=== PATIENT | female | born 1945 | race Caucasian/White ===

== ENCOUNTER 2024-10-27 10:51 | Outpatient (AMB) | payer MEDICARE, SELFPAY ==
--- OUTSIDE RECORDS SUMMARY | 2024-10-27 12:23 | XMS_ITS | Encounter Summary ---
Author Organization [facility] Address [address] [place] [address] Phone Care Team Providers Care Elementary Math Tutor Name Role Phone Vivek Cook MD Primary Care Provider [phone] Reason for Referral * MRI/CAT Scan - Closed Specialty Diagnoses / Procedures Referred By Eloisa bruce Referred To Contact Radiology Diagnoses Memory impairment Procedures MRI Brain Vivek Cook MD Phone: tel: fax: Referral ID Status Reason Start Date Expiration Date Visits Re quested Visits Authorized [id number] Closed 12/13/2020 12/13/2021 1 1 Encounter Details Date Type Department Care Team (Latest Contact Info) Description 12/13/2020 Transcribe Orders Virtual Department [address] [place] [id number] Vivek Cook MD [address] [place] [phone] Memory impairment (Primary Dx) Social History Tobacco Use Types Packs/Day Years Used Date Smoking Tobacco: Never Assessed Comments Unknown Sex and Gender Information Value Date Recorded Sex Assigned at Not on file Legal Sex Female 8:40 AM EDT Gender Identity Not on file Sexual Orientation Not on file documented as of this encounter Plan of Treatment Not on file documented as of this encounter Results * MRI BRAIN WITHOUT CONTRAST (12/29/2020 9:19 AM EDT) Anatomical Region Laterality Modality Head Magnetic Resonan ce 12/29/2020 3:19 PM EDT Impressions 12/29/2020 3:33 PM EDT 1.No subacute infarction, hemorrhage, or a mass lesion. 2.Susceptibility within the right parietal sulci likely representing hemosiderin from prior subarachnoid hemorrhage. 3.Prominence of ventricles and sulci likely representing age-related parenchymal volume loss. Other chronic changes as described above. Narrative 12/29/2020 3:33 PM EDT MRI BRAIN WITHOUT CONTRAST TECHNIQUE: Multi-sequence, multi-planar MRI of the brain was performed without intravenous contrast. COMPARISON: MRI scan from November 04, 2019 FINDINGS: Brain Parenchyma: No evidence of acute infarct, mass lesion, or hemorrhage. There is mild prominence of the trickles and sulci likely representing age- related parenchymal volume loss. There is no evidence of focal or disproportionate volume loss involving any of the lobes to suggest a specific neurodegenerative process. There is sulcal susceptibility in the right parietal lobe which likely represents hemosiderin from prior subarachnoid hemorrhage. There is no evidence of acute intracranial hemorrhage. There are scattered foci of T2/FLAIR hyperintensity in subcortical and periventricular white matter that likely represent chronic microangiopathic white matter ischemic changes in a patient of this age. A more confluent area in the right peritrigonal region, in the vicinity of the previously described sulcal susceptibility may represent sequela of prior trauma. The visualized temporal bone structures are normal. There is no evidence of a CP angle mass or any other retrocochlear abnormality to explain patient's tinnitus, even though the imaging was not specifically performed for this indication. Ventricular System and Extra-Axial Spaces: There is no evidence of midline shift or hydrocephalus. Extracranial Structures: Arterial flow voids in the skull base are present. The globes and orbits are stable. The paranasal sinuses are clear. Procedure Note Devin Wood MD, PhD - 12/29/2020 MRI BRAIN WITHOUT CONTRAST TECHNIQUE: Multi-sequence, multi-planar MRI of the brain was performed withoutintravenous contrast. COMPARISON: MRI scan from November 04, 2019 FINDINGS: Brain Parenchyma: No evidence of acute infarct, mass lesion, orhemorrhage. There is mild prominence of the trickles and sulci likely representingage- related parenchymal volume loss. There is no evidence of focal ordisproportionate volume loss involving any of the lobes to suggest aspecific neurodegenerative process. There is sulcal susceptibility in the right parietal lobe which likelyrepresents hemosiderin from prior subarachnoid hemorrhage. There is noevidence of acute intracranial hemorrhage. There are scattered foci of T2/FLAIR hyperintensity in subcortical andperiventricular white matter that likely represent chronicmicroangiopathic white matter ischemic changes in a patient of this age. Casandra confluent area in the right peritrigonal region, in the vicinity ofthe previously described sulcal susceptibility may represent sequela ofprior trauma. The visualized temporal bone structures are normal. There is no evidenceof a CP angle mass or any other retrocochlear abnormality to explainpatient's tinnitus, even though the imaging was not specifically performedfor this indication. Ventricular System and Extra-Axial Spaces: There is no evidence of midlineshift or hydrocephalus. Extracranial Structures: Arterial flow voids in the skull base arepresent. The globes and orbits are stable. The paranasal sinuses areclear. IMPRESSION: 1.No subacute infarction, hemorrhage, or a mass lesion. 2.Susceptibility within the right parietal sulci likely representinghemosiderin from prior subarachnoid hemorrhage. 3.Prominence of ventricles and sulci likely representing age-relatedparenchymal volume loss. Other chronic changes as described above. Vivek Cook MD IM MR HEAD/NECK Final Result documented in this encounter Visit Diagnoses Diagnosis Memory impairment- Primary Memory loss Memory impairment Memory loss documented in this encounter Care Teams Elementary Math Tutor Relationship Specialty Start Date End Date Vivek Cook MD [address] [place] [address] PCP - General Internal Medicine 11/02/19 documented as of this encounter Additional Source Comments The information contained in this document represents components of the legal health record. It is not the complete legal health record.[facility]
--- OUTSIDE RECORDS SUMMARY | 2024-10-27 12:23 | XMS_ITS ---
Author Name [facility] Organization Unknown Encounters Encounter Type Encounter Reason Primary Diagnosis Location Date Ambulatory Encntr for obgyn hospitalist physician exam (general) (routine) w abnormal findings Encntr for obgyn hospitalist physician exam (general) (routine) w abnormal findings [facility] 05/04/2024 Ambulatory [facility] 07/05/2021 Care Team Organization Name Specialty Phone Email Start Date End Da te [facility] 07/08/2021 [facility] 07/05/2021 07/05/2021
== END 2024-10-27 13:45 | disposition home or self-care (01) ==
LOC: HO.HMGAL 10:51
PROVIDERS: PCP Internal Medicine; Visit Provider Registered Nurse Emergency
DX: J30.89 Other allergic rhinitis (principal)
CPT/HCPCS: 95117; 95165

== ENCOUNTER 2024-12-12 12:09 | Outpatient (AMB) | payer MEDICARE, SELFPAY | END 2024-12-12 12:28 | disposition home or self-care (01) | LOC: HO.HMGAL 12:09 | PROVIDERS: PCP Internal Medicine; Visit Provider Registered Nurse Emergency | DX: J30.89 Other allergic rhinitis (principal) | CPT/HCPCS: 95117; 95165 ==

== ENCOUNTER 2025-01-09 13:17 | Outpatient (AMB) | payer MEDICARE, SELFPAY | END 2025-01-09 13:18 | disposition home or self-care (01) | LOC: HO.HMGAL 13:17 | PROVIDERS: PCP Internal Medicine; Visit Provider Registered Nurse Emergency | DX: J30.89 Other allergic rhinitis (principal) | CPT/HCPCS: 95117; 95165 ==

== ENCOUNTER 2025-02-06 10:48 | Outpatient (AMB) | payer MEDICARE, SELFPAY ==
--- OUTSIDE RECORDS SUMMARY | 2025-02-06 13:52 | XMS_ITS | Data Portability ---
Author Organization [place] [facility], [facility] Address [id number] [place] [address] Assessment No assessment recorded. Plan of Treatment Reminders Order Date Submit Date Provider Last Modified By Organization Details Last Modified Time Details Appointments None recorded. Lab fecal occult blood, stool 2016 017 [email or web address] In-Office Order, Internal Use Only DO Not Attach Compendium DO Not Attach Compendium, Do Not Delete/merge, [id number] 7 14:44:04 pap, IG + reflex HPV 2016 017 [facility], [address] [place], [address] 7 12:08:58 Referral None recorded. Procedures None recorded. Surgeries None recorded. Imaging MAMMO, screening, digital, bilateral 2024 025 [email or web address] [facility], [address], [place], [address], 5 14:30:06 DEXA, axial skeleton 2024 025 [email or web address] [facility], [address], [address], [place], [address], 5 08:41:11 MAMMO, screening, digital, bilateral - bilateral screening u/s for dense breasts if needed. 2021 022 [email or web address] [facility], [address], [address], [place], [address], 2 15:38:09 US, breast, bilateral 2021 022 [facility], [address], [address], [place], [address], 15:38:09 bone density 2021 022 [facility], [address], [place], [address], 15:38:09 MAMMO, screening, digital, bilateral - bilateral screening u/s for dense breasts if needed. 2016 017 [email or web address] [facility], [address], [place], [address], 7 14:46:51 Medication Orders compounded medication 2021 022 [facility], [address], [place], [address], 09:20:28 compounded medication 2020 021 [facility], [address], [place], [address], 09:20:21 compounded medication 2017 018 [facility], [address], [place], [address], 09:20:18 Patient TargetsNo targets recorded. Patient InstructionsNo instructions recorded. Reason for Referral None Reported. Results Created Date Observation Date Name Description Value Unit Range Abnormal Flag Note LastModifiedBy Organization Detail LastModifiedTime 02/24/20 17 02/23/2017 fecal occul t blood , stool Occult Blood negati ve Not Available In-Office Order Internal Use Only DO Not Attach Compendium DO Not Attach Compendium, Do Not Delete/merge, [id number] 02/23/2017 14:02:23 02/24/20 17 02/24/2017 pap, IG + refle x HPV report GYNEC OLOGI PEARL CYTOL OGY REPOR T A. THINP REP PAP TEST WITH HPV REFLE X: SPECI MEN ADEQU ACY: SATIS FACTO RY FOR EVALU ATION . INTER PRETA TION: NEGAT TALITA FOR INTRA EPITH ELIAL LESIO N OR MALIG IBAN . Elect rudolph easton Angy d Out By: KALLI CURRY ON, [place]( CP) CLINI [facility] INFOR MATIO N: LMP: NG Z12.4 Biops y Date: NG Numbe r of vials /slid es submi tted: 1 Speci men sourc e: CERVI X/END OCERV IX Abnor mal Pap Date: NG Autom ated presc reeni ng of all liqui d based speci mens is perfo rmed by the ThinP rep Imagi ng Syste m, unles s other [place]. The Pap test is a scree bear test with an inher ent false negat talita rate. Testi ng per[facility] at [facility] , [address] [place] [address] CLIA [id number] CL-PO [id number]. Not Available [facility] [address] [place], [address] 02/24/2017 12:08:58 02/27/20 17 09/01/2016 MAMMO , scree bear, digit al, bilat eral No observ ation record ed. [facility] (Imaging) [address] [place] [address], [address], 02/08/2018 13:29:20 02/10/20 18 03/09/2017 imagi ng/di agnos tic resul t No observ ation record ed. BARCODE Not Available 2017 10:43:19 02/10/20 18 12/07/2017 imagi ng/di agnos tic resul t No observ ation record ed. BARCODE Not Available 2017 10:43:19 02/10/20 18 12/01/2017 imagi ng/di agnos tic resul t No observ ation record ed. BARCODE Not Available 2017 10:43:19 05/17/19 25 03/17/2024 MAMMO , scree bear, tomos ynthe sis, bilat eral No observ ation record ed. [email or web address] [facility] [address], [place], [address], 05/18/2024 10:20:03 Result Notes None recorded. Problems Name Problem SNOMED Code Status Onset Date Resolution Date Notes Provider Name and Address Organization Details Recorded Time Hypertensive disorder 92153268 Active Lynette Mills [facility], [facility] 6 10:02:07 Atrophic vaginitis 89267674 Active LOLA ANTONIO MD 175 [facility], [address] [place] [address], [phone], [facility] 6 10:44:01 Asthma 116288476 Active 2012 Lynette Mills [facility] 6 10:02:07 Problem Notes None recorded. Procedures Surgical History Date Name Laterality Status Provider Name and Address Organization Details Recorded Time 12/02/19 Date of Last Mammogram completed DO NOT USE DO NOT USE [facility] 02/08/2018 13:07:45 02/24/20 17 Medicare Exam completed LOLA ANTONIO MD 175 [facility], [address] [place] [address], [phone], [facility] 02/23/2017 14:43:11 02/24/20 17 Screening PAP Medicare completed LOLA ANTONIO MD 175 [facility], [address] [place] [address], [phone], [facility] 02/23/2017 14:43:16 05/30/19 15 Date of Last Pap Smear completed Alessia Barrientos [facility] 02/23/2017 13:57:57 Appendectomy completed Not Available [facility] 08/28/2014 14:13:29 Tubal Ligation completed Not Available [facility] 08/28/2014 14:13:29 Colonoscopy completed Anahi Doran [place] - [facility] 07/05/2021 08:52:05 Imaging Results None recorded. Procedure Notes None recorded. Medical Equipment None Reported. Allergies Allergen ID Allergen Name Allergen Category Reaction Reaction Severity Criticality Documentation Date Start Date Code Code System Note Provider Name and Address Organization Details Recorded Time 024156 clarithro mycin medicatio n Not available Not available Not available 08/15/20142012 RxNorm COMME NT: CAUSA TIVE AGENT : BIAXI N; Not Available [facility] 5 09:38:44 Medications Name Sig Start Date Stop Date Status Note LastModified by Organization Details LastModified Time compounde d medicatio n advised 0.5 mg of cream 1-2 times per week. 02/17 completed Not Available Not Available Not Available compounde d medicatio n 0.5 mg of cream 1-2 times per week 05/04 completed Not Available Not Available Not Available compounde d medicatio n Advised 0.5mg of cream 1-2 times per week. 02/08 completed Not Available Not Available Not Available compounde d medicatio n 0.5 mg of cream 1-2 times per week 02/17 completed Not Available Not Available Not Available compounde d medicatio n advised 0.5mg of cream 1-2 times per week. active Not Available Not Available No t Available compounde d medicatio n advised 0.5mg of cream 1-2 times per week. 02/08 completed Not Available Not Available Not Available compounde d medicatio n 0.5 mg of cream 1-2 times per week 05/04 completed Not Available Not Available Not Available compounde d medicatio n 0.5 mg of cream 1-2 times per week 02/17 completed Not Available Not Available Not Available compounde d medicatio n 0.5 mg of cream 1-2 times per week 2024 active Not Available Not Available Not Avai lable compounde d medicatio n advised 0.5mg of cream 1-2 times per week. 02/17 completed Not Available Not Available Not Available titae d medicatio n 0.5 mg of cream 1-2 times per week 05/04 completed Not Available Not Available Not Available carisopro dol 350 mg tablet active Not Available Not Available No t Available amoxicill in 500 mg capsule active Not Available Not Available Not Available donepezil 5 mg tablet 05/04 completed Not Available Not Available Not Available benzonata te 200 mg capsule TAKE ONE CAPSULE BY MOUTH THREE TIMES A DAY FOR 5 DAYS active Not Available Not Available No t Available donepezil 10 mg tablet TAKE ONE TABLET BY MOUTH EVERY DAY IN THE EVENING 05/04 completed Not Available Not Available Not Available prednison e 20 mg tablet 02/08 completed Not Available Not Available Not Available alendrona te 70 mg tablet TAKE 1 TABLET BY MOUTH ONCE WEEKLY 05/04 completed Not Available Not Available Not Available betametha sone, augmented 0.05 % topical cream PLEASE SEE ATTACHED FOR DETAILED DIRECTIO NS 05/04 completed Not Available Not Available Not Available ciproflox acin 500 mg tablet 02/08 completed Not Available Not Available Not Available sulfameth oxazole 800 mg-trimet hoprim 160 mg tablet TAKE ONE TABLET BY MOUTH EVERY 12 HOURS FOR 5 DAYS 05/04 completed Not Available Not Available Not Available meloxicam 7.5 mg tablet TAKE 1 TABLET BY MOUTH EVERY DAY 05/04 completed Not Available Not Available Not Available hydrocort isone 1 % topical cream APPLY A THIN LAYER TO FACE TWO TIMES A DAY 05/04 completed Not Available Not Available Not Available cephalexi n 500 mg capsule TAKE ONE CAPSULE BY MOUTH TWICE A DAY FOR 7 DAYS - STOP BACTRIM 05/04 completed Not Available Not Available Not Available erythromy reece 5 mg/gram (0.5 %) eye ointment APPLY 1/2 INCH RIBBON INTO THE CONJUNCT IVAL SAC(S) IN AFFECTED EYE(S) 3 TIMES PER DAY 05/04 completed Not Available Not Available Not Available betametha sone dipropion ate 0.05 % topical cream 05/04 completed Not Available Not Available Not Available diclofena c sodium 75 mg tablet,de layed release TAKE ONE TABLET BY MOUTH TWICE A DAY 05/04 completed Not Available Not Available Not Available dexametha sone sodium phosphate 4 mg/mL injection solution INJECT ONE ML UNDER THE SKIN DIRECTED - TO BE USED BY PHYSICAL THERAPIS TS AT [facility] 05/04 completed Not Available Not Available Not Available methylpre dnisolone 4 mg tablets in a dose pack 02/08 completed Not Available Not Available Not Available albuterol sulfate HFA 90 mcg/actua tion aerosol inhaler INHALE TWO PUFFS BY MOUTH EVERY 4 HOURS NEEDED active Not Available Not Available No t Available fluticaso ne propionat e 50 mcg/actua tion nasal spray,shruti pension USE 2 SPRAYS IN EACH NOSTRIL ONCE DAILY NEEDED active Not Available Not Available No t Available doxycycli ne hyclate 100 mg tablet 02/08 completed Not Available Not Available Not Available naproxen 500 mg tablet TAKE ONE TABLET BY MOUTH TWICE A DAY WITH FOOD 05/04 completed Not Available Not Available Not Available amoxicill in 875 mg-potass ium clavulana te 125 mg tablet active Not Available Not Available Not Available azithromy reece 500 mg tablet 02/23 completed Not Available Not Available Not Available ciclopiro x 1 % shampoo WASH HAIR 2-3 TIMES PER WEEK 05/04 completed Not Available Not Available Not Available memantine 10 mg tablet TAKE ONE TABLET BY MOUTH EVERY DAY 05/04 completed Not Available Not Available Not Available memantine 5 mg tablet TAKE ONE TABLET BY MOUTH EVERY DAY 05/04 completed Not Available Not Available Not Available metoprolo l tartrate 25 mg tablet TAKE ONE TABLET BY MOUTH TWICE A DAY WITH FOOD 05/04 completed Not Available Not Available Not Available Flovent HFA 44 mcg/actua tion aerosol inhaler INHALE 2 PUFF BY INHALATI ON ROUTE 2 TIMES EVERY DAY active PRESCRIB ED ELSEWHER E Not Available Not Available Not Available loratadin e 02/23 completed Not Available Not Available Not Available Vagifem 02/08 completed Not Available Not Available Not Available Vagifem 10 mcg vaginal tablet 0.5 MG OF CREAM 1-2 TIMES PER WEEK active Not Available Not Available No t Available Claritin Liqui-Gel 10 mg capsule active PRESCRIB ED ELSEWHER E Not Available Not Available Not Available Proctosol HC 2.5 % topical cream perineal applicato r 02/08 completed Not Available Not Available Not Available Paxlovid 300 mg (150 mg x 2)-100 mg tablets in a dose pack 05/04 completed Not Available Not Available Not Available Vitals Date Recorded Body height Body mass index (BMI) Body weight Systolic And Diastolic Provider Name and Address Organization Details Last Updated DateTime 05/04/2024 172.72 cm 24.6 kg/m2 01527.96 g 138/80 mm[Hg] Cyndie Sha [facility] 05/04/2024 14:21:43 Date Recorded Body weight Body mass index (BMI) Body height Systolic And Diastolic Provider Name and Address Organization Details Last Updated DateTime 05/25/2020 34782.41 g 23.7 kg/m2 172.72 cm 122/76 mm[Hg] Anahi Doran [facility] 05/25/2020 10:15:27 Date Recorded Body height Body mass index (BMI) Body weight Systolic And Diastolic Provider Name and Address Organization Details Last Updated DateTime 07/05/2021 172.72 cm 24.3 kg/m2 50523.78 g 124/78 mm[Hg] Anahi Doran [facility] 07/05/2021 09:56:29 Date Recorded Body height Body mass index (BMI) Body weight Systolic And Diastolic Provider Name and Address Organization Details Last Updated DateTime 02/08/2018 172.72 cm 23.6 kg/m2 67384.61 g 116/80 mm[Hg] DO NOT USE DO NOT USE [facility] 02/08/2018 13:09:39 Date Recorded Body weight Body mass index (BMI) Body height Systolic And Diastolic Provider Name and Address Organization Details Last Updated DateTime 02/23/2017 09206.78 g 24.3 kg/m2 172.72 cm 100/60 mm[Hg] Alessia Barrientos [facility] 02/23/2017 14:15:57 Social History Question Answer Notes LastModified by Organizat ion Details LastModified Time Tobacco Smoking Status Never Smoker Lynette marie [facility] 05/24/2015 11:03:41 Do You Have Any Children? Yes [email or web address] Information not available 02/23/2017 Does Your Partner Physically Hurt You Or Threaten To Hurt You? No [email or web address] Information not available 02/23/2017 Has Your Partner Forced You To Have Sex Or Perform Sex Acts When You Did Not Want To? No Information not available 02/23/2017 Does Your Partner Insult, Scream At Or Talk Down To You? No Information not available 02/23/2017 Does Your Partner Control You Or Any Part Of Your Life? No [email or web address] Information not available 02/23/2017 Are You Afraid Of Your Partner? No [email or web address] Information not available 02/23/2017 Drug Use? No Information no t available 05/24/2015 Do You Feel Safe At Home? Yes [email or web address] Information not available 02/23/2017 What Was The Date Of Your Most Recent Tobacco Screening? 02/23/2017 [email or web address] Information not available 07/05/2021 How Many Children Do You Have? 2 [email or web address] Information not available 02/23/2017 Sex: Unknown Functional Status Question Answer Note LastModified by Organizat ion Details LastModified Time What is your level of alcohol consumption? None Information not available 05/24/2015 What is your exercise level? Moderate 2-4 miles per day, weight bearing exercises [email or web address] Information not available 02/23/2017 Mental Status None recorded. Family History Relationship Description Onset Age of this Age Resolved Age Notes LastModified by Organization Details LastModified Time Unspecified Relation Malignant neoplasm of breast matern al cousin [email or web address] Not available 07/16/2015 09:55:14 Father Myocardial infarction shammell Not available 07/05 08:52:05 Mother Aortic valve stenosis shammell Not available 2021 08:52:05 Medical History Condition Response Other N Kidney Stones N Breast Cancer N Blood clots N Colon cancer N Benign breast disease N Depression N Lung Disease N Defects or Inherited Disease N Anesthesia Complications N Headaches/Migraines N Neurological Disorder N Have you ever been on isolation N Anxiety Disorder N HSV N Arthritis N Infertility N Interstitial Cystitis N Acid Reflux (GERD) N Cancer N Stroke N Endometriosis N Fibromyalgia N Spina Bifida N HIV N Heart Problems N Sexual Dysfunction N Hypogonadism N Autoimmune disorder N Thyroid Problems N Kidney or Bladder Problems N GI Problems N Eating Disorder N Anemia N Multiple Sclerosis N Psychiatric Illness N Diabetes N Ovarian Cancer N Blood Transfusions N Bladder disease N History of MRSA N None reported by patient N Abnormal Uterine Bleeding N Hyperlipidemia N BrCa positive N Abuse/Domestic Violence N Diverticulitis N Asthma Y Bladder Cancer N Hepatitis N Hypertension N Osteoporosis N Thrombophilias N Gynecological History Statement/Question Response Current Control Method Menopause Date of Last Pap Smear 05/29/2014 Date of Last Mammogram 12/01/2017 Current Control Method Tubal Ligat ion IPV Screen Done 05/04/2024 Obstetrics History GPAL:G 3 P 2 0 1 2 Type Value Full Term 2 Spontaneous 1 Living 2 Total 3 Past Encounters Encounter ID Performer Location Encounter Start Date Encounter Closed Date Diagnosis/Indication Diagnosis SNOMED-CT Code Diagnosis ICD10 Code Diagnosis IMO Codes Diagnosis Note [id number] [facility] [address] [place] [address] 05/17/2012 00:00:00 [id number] [facility] [address] [place] [address] 07/19/2012 00:00:00 [id number] [facility] [address] [place] [address] 01/17/2013 00:00:00 [id number] [facility] [address] [place] [address] 05/23/2013 00:00:00 [id number] [facility] [address] [place] [address] 05/29/2014 00:00:00 [id number] LOLA ANTONIO MD [facility] [address] [place] [address] 07/16/2015 09:51:59 07/16/2015 10:53:46 Atrophic vaginitis 43248171 N95.2 Patient declines vagifem due to $250 cost. Advised to switch to compounded cream to help control costs. Will do equivalent of vagifem. [id number] LOLA ANTONIO MD [facility] [address] [place] [address] 02/23/2017 12:39:40 02/23/2017 14:40:12 Gynecologic examination 07634635 Z01.419 breast and pelvic for Medicare done per patient request. Screening for malignant neoplasm of cervix 777063701 Z12.4 Screening mammography 24 109584 Z12.31 Advised to obtain a yearly screening mammogram and to perform monthly self breast exam. done 09/01/2016 and normal Screening for malignant neoplasm of rectum 813697904 Z12.12 FIT test performed and was negative. [id number] LOLA ANTONIO MD [facility] [address] [place] [address] 02/08/2018 12:23:19 02/08/2018 13:47:57 Atrophic vaginitis 33597284 N95.2 Patient declines vagifem due to $250 cost. Advised to switch to compounded cream to help control costs. Will do equivalent of vagifem. Due for breast and pelvic with pap next year. [id number] CHUY GARRISON APRN [facility] [address] [place] [address] 05/25/2020 09:54:42 05/25/2020 10:35:58 Atrophic vaginitis 61411708 N95.2 Continued good response to compounded testradiol vaginal cream for Continue 1x/week Review in one year sooner for problems She agrees to s en us a copy of her most recent mammogram with PCP [id number] CHUY GARRISON APRN [facility] [address] [place] [address] 07/05/2021 08:50:44 07/05/2021 09:56:18 Gynecologic examination 11133462 Z01.411 Not high risk for cervical cancer Menopause present 585001 006 N95.1 Review when to perform bone density evaluation . Plan up date this year Screening mammography 24 476331 Z12.31 Advised to obtain a yearly screening mammogram and to perform monthly self breast exam. Cannot continue on estrogen without regular screening Heterogene ously dense breast composition 690832685 R92.2 Atrophic vaginitis 48408 000 N95.2 Continued good response to compounded testradiol vaginal cream for Continue 1x/week Review in one year sooner for problems She agrees to s en us a copy of her most recent mammogram with PCP Screening for malignant neoplasm of rectum 443323478 Z12.12 Next colonoscop y due at 2024 Discussed same statistics Neg family hisotry and neg for polyps was approved for ten years screening interval [id number] CHUY GARRISON, ASSISTANT PROFESSOR OF ECONOMICS [facility] [address] [place] [address] 05/04/2024 13:57:42 05/04/2024 15:33:20 Gynecologic examination 87412865 Z01.419 Not high risk for cervical cancer Screening mammography 24 097798 Z12.31 Advised to obtain a yearly screening mammogram and to perform monthly self breast exam. Cannot continue on estrogen without regular screening Menopause present 356423 006 N95.1 Review when to perform bone density evaluation .does not think she needs dexa Screening for malignant neoplasm of rectum 047790122 Z12.12 Next colonoscop y due at 2024 Discussed same statistics Neg family history and neg for polyps was approved for ten years screening interval Does not think she needs another colonoscop y Depression screening 171 132025 Z13.31 Screen negative for depression Atrophy of vagina 314772 009 N95.2 Does report vaginal burning cannot remember why she was using compounded estradiol cream( chart review was instituted to control costs but probably just as cot effective for estradiol cream now She will call if there is any intoleranc e Health Concerns Section Related Observation LastModified by Organization Detai ls LastModified Time None Recorded Concern Status LastModified by Organization Details LastModified Time None Recorded Advance Directives Directive None Recorded Payers Insurance Date Sequence Insurance Name Policy Number Policy Martel Covered Member ID Martel Member ID Guarantor Name 04/18/2024 1 MEDICARE B-CT: NGS Vanna Fonseca [id number] Vanna Fonseca 05/09/2024 2 [place] [id number] Vanna Fonseca [id number] Vanna Fonseca Notes Date Note Type Note Provider Name and Address Organization Details Recorded Time 7 text/html here for medicare exam only. Refuses breast since patient states was done by PCP recently. LOLA ANTONIO MD [address] [place] [address], [address] Floor, [place], [address], [place] [facility] 02/23/2017 14:44:12 8 text/html [facility] Vaginal DischargeReported by PatientHPIFor location, patient reportsvagina. For quality, patient reportswhite. For severity, patient reportsmild. For associated symptoms, patient reportsno vaginal itching,no vaginal burning,no swelling/redness,no fever/chills,no diarrhea,no abdominal pain,no pelvic pain,no vaginal pain,no pain during urination,no pain during intercourse,no vaginal lump,no genital lesion,no sexually transmitted disease, andno fever. For modifying factors, (improved with vagifem.). LOLA ANTONIO MD 175 [facility], [address] [place] [address], [phone], [facility] 02/08/2018 13:39:16 1 text/html RDB pt here for f/u on atrophic vaginitis. Last seen 02/08/2018 PT using compound estrogen 0.5 1x weekly internally. PT feeling stable. Has been having mammogram with her PCP Asked to send us a copy of her last report since we are the ones prescribing her estrogen Retired RN CHUY GARRISON APRN 175 [facility], [address] [place] [address], [place], [address], [facility] 05/25/2020 10:43:13 2 text/html Pt here for MCR breast and pelvic Was told by PCP that she does not have to have mammograms anymore Discussed office policy here is you cannot be on estrogen, even topcial without mammogram at the usual designated intervals Stopping Mammograms or colonoscopy is just decreased as there are no data points ; 75 year olds were not included in any study parameters CHUY GARRISON APRN 175 [facility], [address] [place] [address], [phone], [facility] 07/05/2021 09:58:11 5 text/html [facility] Annual GYNReported by PatientGenitourinary symptomsFor menstrual cycle, patient reportspostmenopausal. For urinary symptoms, patient reportsno hematuriaandno incontinence. For vulva, patient reportsno genital lesion. For vagina, patient reportsnormal vaginal discharge.Breast symptomsFor breast, patient reportsno breast pain,no breast lump, andno nipple discharge.Endocrine symptomsFor menopausal symptoms, patient reportsinadequacy of lubrication of vaginal mucosabut reportsno menopausal symptoms. For sexual activity, patient reportsno sexual complaints,no pain during intercourse,normal libido, andsexually active no __.Psychological symptomsFor psychological symptoms, patient reportsno depression,no anxiety, andno pmdd. PRESENTS FOR ANNUAL VISIT W/ DPFPAP SMEAR 2017 DEFERRED DUE TO AGEMAMMOGRAM 2018 ENCOURAGEDDEXA DECLINESCOLON SCREEN YEARS AGOC/O VAGINAL DRYNESS, STATES CONSTANT BURNING CHUY GARRISON APRN [address] [facility], 3rd Floor, [place], [address], [place] [facility] 05/04/2024 16:32:17 OBGyn Episode No OBEpisode recorded.
--- OUTSIDE RECORDS SUMMARY | 2025-02-06 13:52 | XMS_ITS | Encounter Summary ---
Author Organization [facility] Address [address] [facility] [address] [address] [place] [address] Phone Care Team Providers Care Quote Clerk Name Role Phone Vivek Cook MD Primary Care Provider [phone] Reason for Referral * MRI/CAT Scan - Closed Specialty Diagnoses / Procedures Referred By Eloisa bruce Referred To Contact Radiology Diagnoses Memory impairment Procedures MRI Brain Vivek Cook MD Phone: tel: fax: Referral ID Status Reason Start Date Expiration Date Visits Re quested Visits Authorized [id number] Closed 12/13/2020 12/13/2021 1 1 Encounter Details Date Type Department Care Team (Latest Contact Info) Description 12/13/2020 Transcribe Orders Virtual Department [address] [place] [address] Vivek Cook MD [address] [place] [id number] Memory impairment (Primary Dx) Social History Tobacco [...] loss documented in this encounter Care Teams Quote Clerk Relationship Specialty Start Date End Date Vivek Cook MD [address] [address] PCP - General Internal Medicine 11/02/19 documented as of this encounter Additional Source Comments The information contained in this document represents components of the legal health record. It is not the complete legal health record.[facility]
--- OUTSIDE RECORDS SUMMARY | 2025-02-06 13:52 | XMS_ITS | Encounter Summary ---
Author Organization [facility] Address [address] [address] [place] [address] Phone Care Team Providers Care Restaurant Cashier Name Role Phone Vivek Cook MD Primary Care Provider [phone] Encounter Details Date Type Department Care Team (Latest Contact Info) Description 02/04/2023 Transcribe Orders Virtual Department [address] [place] [address] Mo Mancini MD [address] [place] [phone] [email or web address] Cardiac murmur, unspecified Social History Tobacco Use Types Packs/Day Years Used Date Smoking Tobacco: Never Assessed Education Answer Date Recorded Are you interested in more education? Not on brando e 07/04/2022 Are you concerned about learning? Not on file 07/04/2022 No 07/04/2022 No 07/04/2022 Digital Access Answer Date Recorded No 08/05/2022 No 08/05/2022 Reliable internet access at home? Not on file 08/05/2022 Device with a working camera? Not on file Comments Unknown Sex and Gender Information Value Date Recorded Sex Assigned at Not on file Legal Sex Female 8:40 AM EDT Gender Identity Not on file Sexual Orientation Not on file documented as of this encounter Plan of Treatment Not on file documented as of this encounter Visit Diagnoses Diagnosis Cardiac murmur, unspecified documented in this encounter Care Teams Restaurant Cashier Relationship Specialty Start Date End Date Vivek Cook MD [address] [address] PCP - General Internal Medicine 11/02/19 documented as of this encounter Additional Source Comments The information contained in this document represents components of the legal health record. It is not the complete legal health record.[facility]
--- OUTSIDE RECORDS SUMMARY | 2025-02-06 13:52 | XMS_ITS | Clinical Summary ---
Author Organization [facility] Address [address] [facility] [address] [place] [address] Phone Care Team Providers Care Boat Mechanic Name Role Phone Vivek Cook MD Primary Care Provider [phone] Social History Tobacco Use Types Packs/Day Years [...] on file Sexual Orientation Not on file Last Filed Vital Signs Vital Sign Reading Time Taken Comments Blood Pressure - - Pulse - - Temperature - - Respiratory Rate - - Oxygen Saturation - - Inhaled Oxygen Concentration - - Weight 70.8 kg (156 lb) 12/24/2020 7:21 PM EDT Height 172.7 cm (5' 8 ) 12/24/2020 7:21 PM EDT Body Mass Index 23.72 12/24/2020 7:21 PM EDT Plan of Treatment Not on file Medical Devices Not on file Insurance [employer] MEDEX SUPPLEMENT MEDICARE PART A & B [employer] MEDEX SUPPLEMENT MEDICARE PART A & B [employer]EX SUPPLEMENT MEDICARE PART A & B [employer] MEDEX SUPPLEMENT MEDICARE PART A & B [employer] MED[employer] SUPPLEMENT MEDICARE PART A & B [employer] MED[employer] SUPPLEMENT MEDICARE PART A & B [employer] MED[employer] SUPPLEMENT MEDICARE PART A & B [employer] MED[employer] SUPPLEMENT MEDICARE PART A & B [employer] SUPPLEMENT MEDICARE PART A & B Care Teams Boat Mechanic Relationship Specialty Start Date End Date Vivek Cook MD [address] [place] [address] PCP - General Internal Medicine 11/02/19 Additional Source Comments The information contained in this document represents components of the legal health record. It is not the complete legal health record.[facility]
--- OUTSIDE RECORDS SUMMARY | 2025-02-06 13:52 | XMS_ITS | Encounter Summary ---
Author Organization [facility] Address [address] [facility] [address] [facility] [address] [place] [address] Phone Care Team Providers Care Manager Policy Name Role Phone Vivek Cook MD Primary Care Provider [phone] Encounter Details Date Type Department Care Team (Late st Contact Info) Description 12/13/2020 Procedure [facility], [address] [address] Social History Tobacco Use Types Packs/Day Years Used Date Smoking Tobacco: Never Assessed Comments Unknown Sex and Gender Information Value Date Recorded Sex Assigned at Not on file Legal Sex Female 8:40 AM EDT Gender Identity Not on file Sexual Orientation Not on file documented as of this encounter Plan of Treatment Not on file documented as of this encounter Visit Diagnoses Not on filedocumented in this encounter Care Teams Manager Policy Relationship Specialty Start Date End Date Vivek Cook MD [address] [facility] [address] [place] [address] PCP - General Internal Medicine 11/02/19 documented as of this encounter Additional Source Comments The information contained in this document represents components of the legal health record. It is not the complete legal health record.[facility]
--- OUTSIDE RECORDS SUMMARY | 2025-02-06 13:52 | XMS_ITS | Encounter Summary ---
Author Organization [facility] Address [address] [facility] [address] [place] [address] Phone Care Team Providers Care Mattress Filler Name Role Phone Vivek Cook MD Primary Care Provider [phone] Encounter Details Date Type Department Care Team (Late st Contact Info) Description 12/26/2020 Ancillary Orders [facility],Outside Imaging [address] [place] [address] System, Provider Not In, [place] [address] Social History Tobacco Use Types Packs/Day Years Used Date Smoking Tobacco: Never Assessed Comments Unknown Sex and Gender Information Value Date Recorded Sex Assigned at Not on file Legal Sex Female 8:40 AM EDT Gender Identity Not on file Sexual Orientation Not on file documented as of this encounter Plan of Treatment Not on file documented as of this encounter Results * MRI Brain Outside (No Interpretation) (11/04/2019 12:00 AM EDT) Narrative SYSTEMGENERATED, DOCUMENTATION - 12/26/2020 2:48 PM EDT This study is for PACS storage only and not for interpretation. us Provider Not In System PhD IMG OUTSIDE IMAGING W /OUT INTERPRETATION Final Result documented in this encounter Visit Diagnoses Not on filedocumented in this encounter Care Teams Mattress Filler Relationship Specialty Start Date End Date Vivek Cook MD [address] [address] PCP - General Internal Medicine 11/02/19 documented as of this encounter Additional Source Comments The information contained in this document represents components of the legal health record. It is not the complete legal health record.[facility]
== END 2025-02-06 10:48 | disposition home or self-care (01) ==
LOC: HO.HMGAL 10:48
PROVIDERS: PCP Family Medicine; Visit Provider Registered Nurse Emergency
DX: J30.89 Other allergic rhinitis (principal)
CPT/HCPCS: 95117; 95165